=== PATIENT | male | born 2000 | race Caucasian/White ===

== ENCOUNTER 2023-03-05 00:15 | Emergency (ER) | payer OTHER ==
[~2023-03-05] VITALS: Ht 175.3 cm; Wt 63.5 kg
[2023-03-05 00:20] VITALS: BP_SYST 158
[2023-03-05] MEDS ORDERED: IBUPROFEN 600 MG TABLET PO ONE (01:15)
[2023-03-05] MEDS ORDERED: ACETAMINOPHEN 500 MG TABLET PO ONE (01:15)
[2023-03-05] MEDS ORDERED: IBUP-1969 PO (01:52)
[2023-03-05 02:04] VITALS: BP_SYST 118
== END 2023-03-05 00:20 | disposition home or self-care (01) ==
LOC: SED 00:15
DX: S00.83XA Contusion of other part of head, initial encounter (principal); S10.91XA Abrasion of unspecified part of neck, initial encounter; S40.812A Abrasion of left upper arm, initial encounter; S40.811A Abrasion of right upper arm, initial encounter; Z79.899 Other long term (current) drug therapy; Y04.0XXA Assault by unarmed brawl or fight, initial encounter; Y93.89 Activity, other specified; Y92.89 Other specified places as the place of occurrence of the external cause; Y99.8 Other external cause status
CPT/HCPCS: 70450-TC; 76376; 99284